=== PATIENT | female | born 1965 | race Caucasian/White ===

== ENCOUNTER → 2020-07-02 07:42 | Outpatient (CLI) | payer OTHER, SELFPAY ==
[2020-07-03 00:19] LABS: SARS-CoV-2 RNA PCR Negative
== END ==
PROVIDERS: PCP Family Medicine; Visit Provider Physician Assistant
DX: Z20.822 Contact with and (suspected) exposure to COVID-19 (principal); R50.9 Fever, unspecified; R51.9 Headache, unspecified
CPT/HCPCS: C9803; U0003; U0005

== ENCOUNTER 2021-09-29 01:56 | Day surgery (SDC) | payer OTHER, SELFPAY ==
[2021-09-22 13:16] VITALS: BMI 33.3
[2021-09-29 13:00] VITALS: BP 139/81; PULSE 77; RESP 16; TEMP 36.4; O2SAT 99; BMI 32.4
[2021-09-29] MEDS: LACTATED RINGERS 1,000 ML 150 ML IV CONT (13:14)
[2021-09-29 13:19] LABS: Glucose Point of Care 156 mg/dl (65-105)
--- NOTE | 2021-09-29 13:31 | WPDANESEPPF ---
Anes - Initial Pre Proc Eval Procedure: Operation Date: 09/29/21 13:30 Proposed Procedures p Screening Colonoscopy - Angel Maxwell MD Date/Time: 09/29/21 13:31 Surgeon: Angel Maxwell MD Pre Op Diagnosis: neoplasm screening, family hx of colon polyps Patient Data Age: 55 Gender: F Height: 1.65 m Weight: 88.4 kg Last Vital Signs Temp 36.4 C L 09/29/21 13:00 Pulse 77 09/29/21 13:00 Resp 16 09/29/21 13:00 BP 139/81 09/29/21 13:00 Pulse Ox 99 09/29/21 13:00 Allergies Allergy/AdvReac Type Severity Reaction Status Date / Time dipyridamole [Aggrenox] Allergy Intermediate Nausea Verified 09/29/21 13:03 trazodone AdvReac Severe night [place] Verified 09/29/21 13:03 Home Medications Medication Instructions Recorded Confirmed Type lancets 30 gauge #100 each 05/26/19 09/29/21 Rx blood sugar diagnostic #100 each 12/14/19 09/29/21 Rx albuterol sulfate 90 mcg/actuation 2 puff INHALATION Q4H PRN #8 gm 01/27/20 09/29/21 Rx aerosol inhaler empagliflozin 12.5 mg-metformin See Rx Instructions .ROUTE 02/04/20 09/29/21 Rx 1,000 mg tablet .COMPLEX #180 tablet simvastatin 20 mg tablet See Rx Instructions .ROUTE 08/02/20 09/29/21 Rx .COMPLEX #90 tablet semaglutide 0.5 mg SUB-Q WEEKLY #1.5 ml 02/17/21 09/29/21 Rx levothyroxine 50 mcg tablet See Rx Instructions .ROUTE 07/28/21 09/29/21 Rx .COMPLEX #90 tablet pantoprazole 40 mg tablet,delayed See Rx Instructions .ROUTE 07/28/21 09/29/21 Rx release .COMPLEX #90 tablet bupropion HCl 150 mg PO DAILY 09/22/21 09/29/21 History topiramate 100 mg PO DAILY 09/22/21 09/29/21 History venlafaxine 75 mg PO BID 09/22/21 09/29/21 History Laboratory Tests 09/29/21 13:17 POC Capillary Glucose 156 mg/dl H mg/dl (65-105) Patient hx anesthesia problems: none Family hx anesthesia problems: none Results Review: All pre-operative results and documents have been reviewed as part of the pre-operative evaluation. [facility] Past Medical History Medical History Depression Dyslipidemia Hypothyroidism Mixed hyperlipidemia Obstructive sleep apnea (adult) (pediatric) Uncontrolled type 2 diabetes mellitus with hyperglycemia Social History Social History Smoking status: Never smoker Alcohol intake: never Substance use: never Substance use type: does not use Living arrangements: with family Spiritual care concerns: No Anes - Eval Final PreProcedure Day of Procedure 09/29/21 13:32 Patient weight: obese Heart: regular rate and rhythm Lungs: clear to auscultation Airway: Mallampati scale class II Neurological: alert and oriented Last oral intake: >/= 8 hours ASA classification: III Emergent: no Anesthetic plan: proceed Anesthesia type and monitoring: general GIVS and standard monitoring Results Review: All pre-operative results and documents have been reviewed as part of the pre-operative evaluation. Informed Consent: The patient's anesthetic plan and its attendant risks and benefits were discussed with the patient/family/POA. Questions were solicited and answers provided to the satisfaction of the patient/family/POA.
--- NOTE | 2021-09-29 13:47 | WPDGICN ---
Assessment and Plan Assessment and plan (1) Family history of colonic polyps: Code(s): Z83.71 - Family history of colonic polyps Status: Acute Assessment and Plan: Patient's mother has had colon polyps. For this reason patient presents for neoplasia surveillance colonoscopy. Further recommendations will be given after colonoscopy. GI Consult Note Consult date/time: 09/29/21 13:47 HPI: Falguni Lopez is a 55 year old female presents for screening colonoscopy . patient states that her current weight appetite bowel movements are normal. Patient denies abdominal pain. She has had no bleeding. patient's family history is significant that her mother had colon polyps. Patient's last colonoscopy 7 or 8 years ago was unremarkable. Patient presents today for neoplasia screening. Patient reports weight loss of about 100lb over last several years. Review of Systems Review of Systems: All systems reviewed & are unremarkable except as noted in HPI and below PMFSH Past Medical History Medical History Depression Dyslipidemia Hypothyroidism Mixed hyperlipidemia Obstructive sleep apnea (adult) (pediatric) Uncontrolled type 2 diabetes mellitus with hyperglycemia Social History Social History Smoking status: Never smoker Alcohol intake: never Substance use: never Substance use type: does not use Living arrangements: with family Spiritual care concerns: No Meds Home Medications and Allergies Home Medications Medication Instructions Recorded Confirmed Type lancets 30 gauge #100 each 05/26/19 09/29/21 Rx blood sugar diagnostic #100 each 12/14/19 09/29/21 Rx albuterol sulfate 90 mcg/actuation 2 puff INHALATION Q4H PRN #8 gm 01/27/20 09/29/21 Rx aerosol inhaler empagliflozin 12.5 mg-metformin See Rx Instructions .ROUTE 02/04/20 09/29/21 Rx 1,000 mg tablet .COMPLEX #180 tablet simvastatin 20 mg tablet See Rx Instructions .ROUTE 08/02/20 09/29/21 Rx .COMPLEX #90 tablet semaglutide 0.5 mg SUB-Q WEEKLY #1.5 ml 02/17/21 09/29/21 Rx levothyroxine 50 mcg tablet See Rx Instructions .ROUTE 07/28/21 09/29/21 Rx .COMPLEX #90 tablet pantoprazole 40 mg tablet,delayed See Rx Instructions .ROUTE 07/28/21 09/29/21 Rx release .COMPLEX #90 tablet bupropion HCl 150 mg PO DAILY 09/22/21 09/29/21 History topiramate 100 mg PO DAILY 09/22/21 09/29/21 History venlafaxine 75 mg PO BID 09/22/21 09/29/21 History Allergies Allergy/AdvReac Type Severity Reaction Status Date / Time dipyridamole [Aggrenox] Allergy Intermediate Nausea Verified 09/29/21 13:03 trazodone AdvReac Severe night [place] Verified 09/29/21 13:03 Vital Signs Vital Signs - 24 hr 09/29/21 13:00 Temperature 97.5 F L Pulse Rate 77 Respiratory Rate 16 Blood Pressure 139/81 Pulse Oximetry 99 Exam Narrative: Physical exam reveals patient to be alert. Vital signs stable. HEENT exam is unremarkable. Patient is anicteric. Lungs are clear to auscultation and percussion. Heart is without murmur or extra sounds. Abdomen bowel sounds are present soft nontender with no organomegaly. Digital external rectal exam is normal.
[2021-09-29 14:11] VITALS: BP 121/68; PULSE 66; RESP 21; O2SAT 96
[2021-09-29 14:21] VITALS: BP 106/63; PULSE 70; RESP 21; O2SAT 100
[2021-09-29 14:31] VITALS: BP 109/59; PULSE 63; RESP 23; O2SAT 100
== END 2021-09-29 14:39 | disposition home or self-care (01) ==
PROVIDERS: PCP Family Medicine; Visit Provider Internal Medicine Gastroenterology
PROC: 0DJD8ZZ Inspection of Lower Intestinal Tract, Via Natural or Artificial Opening Endoscopic (ICD-10-PCS; CPT 45378; principal; 2021-09-29 13:30)
DX: Z12.11 Encounter for screening for malignant neoplasm of colon (principal); Z83.71 Family history of colonic polyps; F32.A Depression, unspecified; E03.9 Hypothyroidism, unspecified; E78.2 Mixed hyperlipidemia; G47.33 Obstructive sleep apnea (adult) (pediatric); E11.65 Type 2 diabetes mellitus with hyperglycemia; K64.8 Other hemorrhoids; K57.30 Diverticulosis of large intestine without perforation or abscess without bleeding
CPT/HCPCS: 45378; 82948; J2001; J2704; J7120